=== PATIENT | female | born 1975 | race Caucasian/White ===

== ENCOUNTER 2016-08-31 19:15 | Emergency (ER) | payer OTHER, MEDICAID ==
[~2016-08-31] VITALS: Ht 177.8 cm; Wt 95.3 kg
[~2016-08-31 19:15] MED LIST: ATEN25TA PO; LEVO750T21 PO
[2016-08-31] MEDS ORDERED: BP MED (19:47)
[2016-08-31] MEDS ORDERED: CARV3.12 PO (19:47)
[2016-08-31] MEDS ORDERED: LOSA1TAB36 PO (19:47)
[2016-08-31] MEDS ORDERED: IBUPROFEN 600 MG TABLET PO ONE ×2 (19:54→20:00)
[2016-08-31 21:06] VITALS: BP 180/118
== END 2016-08-31 21:08 | disposition home or self-care (01) ==
LOC: ER 19:20
DX: S20.211A Contusion of right front wall of thorax, initial encounter (principal); S60.212A Contusion of left wrist, initial encounter; S60.222A Contusion of left hand, initial encounter; I10 Essential (primary) hypertension; Z98.51 Tubal ligation status; Z88.0 Allergy status to penicillin; Z88.6 Allergy status to analgesic agent; Z88.8 Allergy status to other drugs, medicaments and biological substances; Z88.5 Allergy status to narcotic agent; V43.52XA Car driver injured in collision with other type car in traffic accident, initial encounter; Y93.89 Activity, other specified; Y92.413 State road as the place of occurrence of the external cause; Y99.8 Other external cause status
CPT/HCPCS: 29125; 71100; 73110; 73130; 99284; A4606; A6402; Z7610